=== PATIENT | female | born 1975 | race American Indian/Alaskan Native ===

== ENCOUNTER 2017-06-18 11:13 | Emergency (ER) | payer MEDICAID ==
[2017-06-18 11:30] VITALS: BP 149/87
--- NOTE | 2017-06-18 13:01 | Emergency Department Report ---
HPI - General Chief Complaint: Upper Respiratory Infection Time Seen by Provider: 06/18/17 12:47 - HPI HPI: Patient reports that she's been having body ache, sore throat, headache, nasal congestion and drainage, watery eyes. She said this started 3 days ago. She's been taking an TheraFlu, Sudafed and vitamin C and drinking water but she is not getting any better. Reports pressure behind her eyes but denies eye pain. Body aches is 8 out of 10 and achy. Denies any nausea or vomiting. Denies any abdominal pain or back pain. Denies any wheezing and stridor or shortness of breath or chest pain. Denies any urinary burning frequency or urgency. ED Past Medical Hx - Past Medical History Previous Medical History?: Yes Hx Hypertension: Yes - Surgical History Past Surgical History?: No Additional Surgical History: tubal ligation - Family History Family history: no significant - Social History Smoking Status: Never Smoker Substance Use Type: Alcohol - Medications Home Medications: Home Medications Medication Instructions Recorded Confirmed Last Taken Type Amoxicillin [Trimox CAP] 500 mg PO Q8H #30 capsule 06/10/14 Unknown Rx Ibuprofen [Motrin 800 MG tab] 800 mg PO Q8H PRN #30 tablet 06/10/14 Unknown Rx predniSONE [Deltasone] 50 mg PO QDAY #5 tab 06/10/14 Unknown Rx Cetirizine HCl [ZyrTEC] 10 mg PO QDAY #7 capsule 06/18/17 Unknown Rx Ibuprofen [Motrin] 600 mg PO Q6H PRN #20 tablet 06/18/17 Unknown Rx Oseltamivir [Tamiflu] 75 mg PO BID 5 Days #10 cap 06/18/17 Unknown Rx Promethazine /Codeine 5 ml PO Q6H PRN #100 ml 06/18/17 Unknown Rx [Phenergan/Codeine 6.25-10 mg/5 ml] ED Review of Systems ROS: Stated complaint: FLU LIKE SYMPTOMS Other details as noted in HPI Comment: All other systems reviewed and negative Constitutional: chills, fever Eyes: denies: eye discharge ENT: throat pain, congestion. denies: ear pain, dental pain, hearing loss Respiratory: cough. denies: orthopnea, shortness of breath, SOB with exertion, SOB at rest, stridor, wheezing Cardiovascular: denies: chest pain, palpitations, dyspnea on exertion, edema, syncope, paroxysmal nocturnal dyspnea Gastrointestinal: denies: abdominal pain, nausea, vomiting, diarrhea, constipation, hematemesis, melena, hematochezia Genitourinary: denies: urgency, dysuria, frequency, hematuria, discharge, abnormal menses, dyspareunia Skin: denies: rash Neurological: denies: headache Physical Exam - Physical Exam Vital Signs: Vital Signs 06/18/17 11:27 Temperature 99.1 F Pulse Rate 94 H Respiratory 20 Rate Blood Pressure 149/87 O2 Sat by Pulse 100 Oximetry General: This is a 41-year-old female well-nourished well-developed and nontoxic in appearance. Physical Exam: Head: Normocephalic, atraumatic, no abrasion, no bruising and no contusion. Eyes: Biateral pupils equal and reactive to light, bilateral EOM intact.. Bilateral conjunctival and sclera without injection, normal accommodation. No nystagmus Mouth: Moist, no pharyngeal exudate or erythema. No peritonsillar abscesses. Uvula is midline and oral airways patent. Ears: Bilateral TM congested without erythema. Bilateral EAC without any redness swelling or drainage. No mastoid bone tenderness Nose: NIKKY nasal turbinates congested with erythema and clear drainage. Maxillary and frontal sinuses non-tender to palpate. Neck: Supple, No Cervical adenopathy, full range of motion and no C-spine tenderness. No swelling or tracheal deviation normal reflexes Cardiovascular: S1, S2. Regular rate and rhythm. No murmur. Capillary refill is less then 3 seconds. Lungs: Clear to auscultate bilaterally. No rhonchi, wheezes or rales. No chest wall tenderness. No chest contusion. No bruising to chest. Dry cough Abdomen: Non-tender to palpate in all quadrants, no guarding or rebound tenderness, positive bowel sounds in all quadrants. No CVA tenderness. No hernia, bruit or mass. No rigidity or distention. Extremities: No clubbing, cyanosis or edema. +2 pulses. No neurovascular compromise Skin: Clean, dry and intact. No rash or lesions. Neurological: GCS at 15, Pt is alert and oriented 3 speech is clearod. 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 Normal gait. Negative Romberg and no pronator drift. Normal Reflexes. No motor or sensory deficit Back: No vertebral tenderness, no paraspinal tenderness. Normal inspection Psych: Normal mood and behavior ED Course Vital Signs 06/18/17 11:27 Temperature 99.1 F Pulse Rate 94 H Respiratory 20 Rate Blood Pressure 149/87 O2 Sat by Pulse 100 Oximetry - Reevaluation(s) Reevaluation #1: 06/18/17 13:31 Patient given Motrin 800 mg emergency room, influenza A&B pending. Orally hydrated. Reevaluation #2: 06/18/17 13:46 Influenza A and B- ED Medical Decision Making - Lab Data Influenza A and B- - Medical Decision Making ED course: Pt reports headache and flulike symptoms over the past 3 days and she 's been taking [id number] medication which is not helping. Patient had influenza A and B done which were negative. She was given Motrin 800 mg emergency room for body aches and orally hydrated which she tolerated well. I discussed patient her results and that she has viral syndrome which is a virus and she will need to increase her fluid intake. I discussed treatment plan and diagnosis with her and she voiced understanding. Patient to follow-up with her primary care physician and I told her she doesn't have a primary care physician she should follow up with [facility]. Patient discharged home on Phenergan with codeine for cough, Motrin for pain and fever, Tamiflu and Zyrtec. Critical care attestation.: If time is entered above; I have spent that time in minutes in the direct care of this critically ill patient, excluding procedure time. ED Disposition Clinical Impression: URI with cough and congestion, Fever and chills, Body aches, Viral syndrome Acute nonintractable headache Qualifiers: Headache type: unspecified Qualified Code(s): R51 - Headache Disposition: DC-01 TO HOME OR SELFCARE Is pt being admited?: No Does the pt Need Aspirin: No Condition: Stable Instructions: Fever in Adults (ED), Viral Syndrome (ED), Acute Cough (ED) Additional Instructions: Please increase her fluid intake to 2-3 L of fluid daily to include water, orange juice and Gatorade. Follow up with your primary care physician in 2 days and if you do not have a primary care physician follow-up at [facility] Take medication as prescribed Please do not drive or operate heavy machinery while taking in cough medicine as this medication causes drowsiness Motrin is for pain and/or fever If Symptoms worsens, return to the emergency room Prescriptions: Cetirizine HCl [ZyrTEC] 10 mg PO QDAY #7 capsule Ibuprofen [Motrin] 600 mg PO Q6H PRN #20 tablet PRN Reason: PAIN/FEVER Oseltamivir [Tamiflu] 75 mg PO BID 5 Days #10 cap Promethazine /Codeine [Phenergan/Codeine 6.25-10 mg/5 ml] 5 ml PO Q6H PRN #100 ml PRN Reason: cough Referrals: [facility] [Outside] - 06/20/17 Forms: Work/School Release Form(ED)
[2017-06-18] MEDS ORDERED: MOTRIN PO ONE (13:04)
== END 2017-06-18 14:03 | disposition home or self-care (01) ==
LOC: ED 11:13
DX: B34.9 Viral infection, unspecified (principal); J06.9 Acute upper respiratory infection, unspecified; R50.9 Fever, unspecified; M79.1 Myalgia; I10 Essential (primary) hypertension
CPT/HCPCS: 87400; 99282

== ENCOUNTER 2018-02-16 10:29 | Emergency (ER) | payer SELFPAY ==
[2018-02-16 10:52] VITALS: BP 135/82
[2018-02-16] MEDS ORDERED: ZOFRAN ODT PO ONE (12:43)
--- NOTE | 2018-02-16 12:43 | Emergency Department Report ---
Chief Complaint: Nausea/Vomiting/Diarrhea Stated Complaint: VOMIT/NAUSEA/DIARRHEA Time Seen by Provider: 02/16/18 12:33 - HPI History of Present Illness: 42-year-old female presents with a 2 day history of nausea, vomiting, diarrhea and abdominal cramping. It appears that the diarrhea is the most concerning part for her. The abdominal cramping comes just before the patient needs to have a bowel movement which she says she has done multiple times each day. She tried some Pepto-Bismol without any relief. She has a previous tubal ligation. Otherwise no significant past medical history. - ROS Review of Systems: Positive for nausea, vomiting, diarrhea and abdominal cramping Negative for chest pain, back pain, shortness of breath, fever, vaginal bleeding or discharge, dysuria - Exam Vital Signs: Vital Signs 02/16/18 10:49 Temperature 98.8 F Pulse Rate 80 Respiratory 16 Rate Blood Pressure 135/82 O2 Sat by Pulse 100 Oximetry Physical Exam: No abdominal pain to palpation. Heart and lung sounds and normal auscultation. Patient does not appear in any acute distress. MSE screening note: Focused history and physical exam performed. Due to findings the following was ordered: I have ordered a CBC, CMP and urinalysis. The patient will have a 2 view abdominal x-ray. She'll be given a Zofran ODT. ED Disposition for MSE Condition: Stable Referrals: PRIMARY CARE, [Primary Care Provider] - 3-5 Days
--- NOTE | 2018-02-16 13:17 | Emergency Department Report ---
ED N/V/D HPI - General Chief complaint: Nausea/Vomiting/Diarrhea Stated complaint: VOMIT/NAUSEA/DIARRHEA Time Seen by Provider: 02/16/18 12:33 Source: patient Mode of arrival: Ambulatory Limitations: No Limitations - History of Present Illness Initial comments: This is a 42-year-old female nontoxic, well nourished in appearance, no acute signs of distress presents to the ED with c/o of nausea and vomiting and diarrhea2 days. Patient describes vomiting as food content. Patient also stated some intermittent abdominal cramping only before and while making bowel movement. Patient denies currently any abdominal pain, pelvic pain, chest pain, short of breath, fever, chills, headache, stiff neck, numbness or tingling. Patient denies any constipation. Patient denies any recent travels. Patient denies any drug allergies significant past medical history. MD complaint: nausea, vomiting, diarrhea -: days(s) (2) Description of Vomiting: food contents Description of Diarrhea: water Associated Abdominal Pain: Yes Location: diffuse Radiation: none Pain Scale: 0 Quality: cramping Consistency: intermittent, now resolved Improves with: none Worsens with: bowel movement Associated Symptoms: nausea/vomiting. denies: myalgias, chest pain, cough, diaphoresis, fever/chills, headaches, loss of appetite, malaise, rash, dysuria, shortness of breath, syncope, weakness - Related Data Previous Rx's Medication Instructions Recorded Last Taken Type Amoxicillin [Trimox CAP] 500 mg PO Q8H #30 capsule 06/10/14 Unknown Rx Ibuprofen [Motrin 800 MG tab] 800 mg PO Q8H PRN #30 tablet 06/10/14 Unknown Rx predniSONE [Deltasone] 50 mg PO QDAY #5 tab 06/10/14 Unknown Rx Cetirizine HCl [ZyrTEC] 10 mg PO QDAY #7 capsule 06/18/17 Unknown Rx Ibuprofen [Motrin] 600 mg PO Q6H PRN #20 tablet 06/18/17 Unknown Rx Oseltamivir [Tamiflu] 75 mg PO BID 5 Days #10 cap 06/18/17 Unknown Rx Promethazine /Codeine 5 ml PO Q6H PRN #100 ml 06/18/17 Unknown Rx [Phenergan/Codeine 6.25-10 mg/5 ml] Ondansetron [Zofran Odt] 4 mg PO Q8HR PRN #20 tab.rapdis 02/16/18 Unknown Rx Allergies Allergy/AdvReac Type Severity Reaction Status Date / Time No Known Allergies Allergy Verified 06/18/17 11:27 ED Review of Systems ROS: Stated complaint: VOMIT/NAUSEA/DIARRHEA Other details as noted in HPI Constitutional: denies: chills, fever Eyes: denies: eye pain, eye discharge, vision change ENT: denies: ear pain, throat pain Respiratory: denies: cough, shortness of breath, wheezing Cardiovascular: denies: chest pain, palpitations Endocrine: no symptoms reported Gastrointestinal: abdominal pain, nausea, vomiting, diarrhea Genitourinary: denies: urgency, dysuria, discharge Musculoskeletal: denies: back pain, joint swelling, arthralgia Skin: denies: rash, lesions Neurological: denies: headache, weakness, paresthesias Psychiatric: denies: anxiety, depression Hematological/Lymphatic: denies: easy bleeding, easy bruising ED Past Medical Hx - Past Medical History Hx Hypertension: Yes - Surgical History Past Surgical History?: Yes Additional Surgical History: tubal ligation - Social History Smoking Status: Current Every Day Smoker Substance Use Type: None - Medications Home Medications: Home Medications Medication Instructions Recorded Confirmed Last Taken Type Amoxicillin [Trimox CAP] 500 mg PO Q8H #30 capsule 06/10/14 Unknown Rx Ibuprofen [Motrin 800 MG tab] 800 mg PO Q8H PRN #30 tablet 06/10/14 Unknown Rx predniSONE [Deltasone] 50 mg PO QDAY #5 tab 06/10/14 Unknown Rx Cetirizine HCl [ZyrTEC] 10 mg PO QDAY #7 capsule 06/18/17 Unknown Rx Ibuprofen [Motrin] 600 mg PO Q6H PRN #20 tablet 06/18/17 Unknown Rx Oseltamivir [Tamiflu] 75 mg PO BID 5 Days #10 cap 06/18/17 Unknown Rx Promethazine /Codeine 5 ml PO Q6H PRN #100 ml 06/18/17 Unknown Rx [Phenergan/Codeine 6.25-10 mg/5 ml] Ondansetron [Zofran Odt] 4 mg PO Q8HR PRN #20 tab.rapdis 02/16/18 Unknown Rx ED Physical Exam - General Limitations: No Limitations General appearance: alert, in no apparent distress - Head Head exam: Present: atraumatic, normocephalic - Eye Eye exam: Present: normal appearance Pupils: Present: normal accommodation - ENT ENT exam: Present: normal exam, mucous membranes moist - Neck Neck exam: Present: normal inspection, full ROM. Absent: tenderness, meningismus, lymphadenopathy - Respiratory Respiratory exam: Present: normal lung sounds bilaterally. Absent: respiratory distress, wheezes, rales, rhonchi, stridor, chest wall tenderness, accessory muscle use, decreased breath sounds, prolonged expiratory - Cardiovascular Cardiovascular Exam: Present: regular rate, normal rhythm, normal heart sounds. Absent: bradycardia, tachycardia, irregular rhythm, systolic murmur, diastolic murmur, rubs, gallop - GI/Abdominal GI/Abdominal exam: Present: soft, normal bowel sounds. Absent: distended, tenderness, guarding, rebound, rigid, diminished bowel sounds, organomegaly, mass, pulsatile mass, hernia - Rectal Rectal exam: Present: deferred - Extremities Exam Extremities exam: Present: normal inspection, full ROM, normal capillary refill. Absent: tenderness - Back Exam Back exam: Present: normal inspection, full ROM. Absent: tenderness, CVA tenderness (R), CVA tenderness (L), paraspinal tenderness, vertebral tenderness - Neurological Exam Neurological exam: Present: alert, oriented X3, normal gait - Psychiatric Psychiatric exam: Present: normal affect, normal mood - Skin Skin exam: Present: warm, dry, intact, normal color. Absent: rash ED Course Vital Signs 02/16/18 10:49 Temperature 98.8 F Pulse Rate 80 Respiratory 16 Rate Blood Pressure 135/82 O2 Sat by Pulse 100 Oximetry - Reevaluation(s) Reevaluation #1: 02/16/18 13:23 Patient is speaking full sentences with no signs of distress noted. - Consultations Consultation #1: Patient has been consulted with Dr. Pacheco about patient history, physical exam, and labs/xray results and examined and screened patient and agrees to ED plan of care and discharge plan of care. ED Medical Decision Making - Lab Data Result diagrams: 02/16/18 12:52 02/16/18 12:52 - Medical Decision Making This is a 42-year-old female that presents with nausea and vomiting and diarrhea. Patient is stable and was examined by me and Dr. Pacheco. There is no abdominal tenderness. Negative signs of symptoms of appendicitis. Labs obtained. UA obtained. KUB abdomen xray obtained and dictated by the radiologist. Patient is notified of the report with no questions noted by the patient. Vital signs are stable prior to discharge. Patient received Zofran and 1L Normal saline in the ED which patient stated symptoms has resolved and subsided. A by mouth challenge has been obtained and patient tolerated well with no nausea vomiting. Patient was notified of strict precautions of appendicitis symptoms and to return to the ED if symptoms occurs as soon as possible. Patient was also instructed to Follow-up with a primary care doctor in 3-5 days or if symptoms worsen and continue return to emergency room as soon as possible. At time of discharge, the patient does not seem toxic or ill in appearance. No acute signs of distress noted. Patient agrees to discharge treatment plan of care. No further questions noted by the patient. Critical care attestation.: If time is entered above; I have spent that time in minutes in the direct care of this critically ill patient, excluding procedure time. ED Disposition Clinical Impression: Nausea vomiting and diarrhea Disposition: DC-01 TO HOME OR SELFCARE Is pt being admited?: No Does the pt Need Aspirin: No Condition: Stable Instructions: Acute Nausea and Vomiting (ED) Additional Instructions: Follow-up with a primary care doctor in 3-5 days or if symptoms worsen and continue return to emergency room as soon as possible. Prescriptions: Ondansetron [Zofran Odt] 4 mg PO Q8HR PRN #20 tab.rapdis PRN Reason: Nausea Referrals: PRIMARY CARE, [Primary Care Provider] - 3-5 Days RAYA CANALES MD [Staff Physician] - 3-5 Days [facility] [Outside] - 3-5 Days [facility] [Outside] - 3-5 Days Forms: Work/School Release Form(ED)
[2018-02-16 13:18] LABS: Basophils % (Auto) 0.2 % (0.0-1.8); Eosinophils # (Auto) 0.3 K/mm3 (0.0-0.4); Eosinophils % (Auto) 3.4 % (0.0-4.3); Hematocrit 34.7 % (30.3-42.9); Hemoglobin 10.8 gm/dl (10.1-14.3); Lymphocytes # (Auto) 2.1 K/mm3 (1.2-5.4); Lymphocytes % (Auto) 25.1 % (13.4-35.0); Mean Corpuscular HGB Conc 31 % (30-34); Mean Corpuscular Hemoglobin 23 pg (28-32); Mean Corpuscular Volume 73 fl (79-97); Monocytes # (Auto) 0.8 K/mm3 (0.0-0.8); Monocytes % (Auto) 9.7 % (0.0-7.3); Platelet Count 293 K/mm3 (140-440); Red Blood Count 4.77 M/mm3 (3.65-5.03); Red Cell Distribution Width 19.7 % (13.2-15.2)
[2018-02-16 13:28] LABS: Alanine Aminotransferase 12 units/L (7-56); Albumin 4.1 g/dL (3.9-5); BUN/Creatinine Ratio 16; Blood Urea Nitrogen 11 mg/dL (7-17); Calcium 9.4 mg/dL (8.4-10.2); Hemolysis Index 0
--- NOTE | 2018-02-16 14:24 | XRay Report ---
FINAL REPORT EXAM: XR ABDOMEN 2V HISTORY: abd pain TECHNIQUE: 3 views of the abdomen. PRIORS: None currently available. FINDINGS: Bowel gas appearance is nonspecific and non-distended. There is no pneumoperitoneum. There is no air fluid level. There is no obstructive pattern. Mild stool is present. Residual contrast in the colon. There are no suspicious calcifications overlying the renal shadows. IMPRESSION: Nonspecific nonobstructive bowel gas pattern.
[2018-02-16 14:27] LABS: Bilirubin,Urine NEG (Negative); Blood,Urine NEG (Negative); Calcium Oxalate Crystals,Urine 1+; Color,Urine Yellow (Yellow); Mucus,Urine 3+ /HPF; Protein,Urine <15 mg/dL mg/dL (Negative); Urobilinogen,Urine < 2.0 mg/dL (<2.0)
== END 2018-02-16 15:23 | disposition home or self-care (01) ==
LOC: ED 10:29
DX: R11.2 Nausea with vomiting, unspecified (principal); R19.7 Diarrhea, unspecified; I10 Essential (primary) hypertension; F17.200 Nicotine dependence, unspecified, uncomplicated
CPT/HCPCS: 36415; 74019; 80053; 81001; 85025; Q0162

== ENCOUNTER 2018-07-08 07:01 | Emergency (ER) | payer SELFPAY ==
[2018-07-08] MEDS ORDERED: NACL 0.9% 1000 ML 1,000 ML IV ONE (07:18)
[2018-07-08 07:34] LABS: Basophils % (Auto) 0.4 % (0.0-1.8); Eosinophils # (Auto) 0.3 K/mm3 (0.0-0.4); Eosinophils % (Auto) 3.5 % (0.0-4.3); Hematocrit 34.8 % (30.3-42.9); Lymphocytes # (Auto) 1.5 K/mm3 (1.2-5.4); Lymphocytes % (Auto) 18.7 % (13.4-35.0); Mean Corpuscular HGB Conc 32 % (30-34); Mean Corpuscular Volume 75 fl (79-97); Monocytes # (Auto) 0.9 K/mm3 (0.0-0.8); Monocytes % (Auto) 10.4 % (0.0-7.3); Platelet Count 317 K/mm3 (140-440); Red Blood Count 4.67 M/mm3 (3.65-5.03)
[2018-07-08 07:57] LABS: Alanine Aminotransferase 10 units/L (7-56); BUN/Creatinine Ratio 17; Blood Urea Nitrogen 12 mg/dL (7-17); Calcium 8.9 mg/dL (8.4-10.2); Hemolysis Index 0
[2018-07-08 08:02] LABS: Bilirubin,Urine NEG (Negative); Blood,Urine NEG (Negative); Color,Urine Yellow (Yellow); Hyaline Casts,Urine 1 /LPF; Mucus,Urine 3+ /HPF; Urobilinogen,Urine < 2.0 mg/dL (<2.0)
[2018-07-08 08:09] LABS: Red Cell Distribution Width 20.4 % (13.2-15.2)
--- NOTE | 2018-07-08 09:47 | Cat Scan Report ---
CT ABDOMEN PELVIS WITH CONTRAST: HISTORY: Abdominal pain with GI bleed. COMPARISON: none. TECHNIQUE: Helical CT in 1.25mm intervals following IV contrast. Sagittal and coronal reconstructions. FINDINGS: Lung bases: Normal. Liver: Normal. Biliary system: Normal. Pancreas: Normal. Spleen: Normal. Kidneys/ureters/bladder: Normal. Adrenal glands: Normal. Aorta: Normal. Intestines: Within normal limits given no oral contrast was administered. Appendix: Normal. Pelvic viscera: A 2.3 cm slightly hyperdense masslike lesion is identified within the endometrial canal near the uterine fundus. The etiology of this is unclear. This could represent a polyp or possibly thrombus. The remainder of the uterus is unremarkable. The adnexa are unremarkable. Ascites: None. Adenopathy: None. Musculoskeletal: Normal. IMPRESSION: Slightly abnormal endometrium as described above. No acute inflammatory process is identified. No obvious site of GI bleeding.
--- NOTE | 2018-07-08 10:06 | Emergency Department Report ---
ED Abdominal Pain HPI - General Chief Complaint: GI Bleed Stated Complaint: BLOODY STOOL ABD PAIN Time Seen by Provider: 07/08/18 08:18 Source: patient Mode of arrival: Ambulatory Limitations: No Limitations - History of Present Illness Initial Comments: Patient is a 42-year-old Female who is presenting with some lower abdominal crampiness. Patient states for the past 4 days after she eats she feels some abdominal cramps. Patient also has blood in her stool. Patient states some bright red blood surrounding form stool. Patient states crampiness does resolve after bowel movements. Patient after eating doses of urgency to have a bowel movement. Patient denies any diarrhea fevers chills nausea vomiting, cold or congestion at this time. Severity scale (0 -10): 6 - Related Data Previous Rx's Medication Instructions Recorded Last Taken Type Amoxicillin [Trimox CAP] 500 mg PO Q8H #30 capsule 06/10/14 Unknown Rx Ibuprofen [Motrin 800 MG tab] 800 mg PO Q8H PRN #30 tablet 06/10/14 Unknown Rx predniSONE [Deltasone] 50 mg PO QDAY #5 tab 06/10/14 Unknown Rx Cetirizine HCl [ZyrTEC] 10 mg PO QDAY #7 capsule 06/18/17 Unknown Rx Ibuprofen [Motrin] 600 mg PO Q6H PRN #20 tablet 06/18/17 Unknown Rx Oseltamivir [Tamiflu] 75 mg PO BID 5 Days #10 cap 06/18/17 Unknown Rx Promethazine /Codeine 5 ml PO Q6H PRN #100 ml 06/18/17 Unknown Rx [Phenergan/Codeine 6.25-10 mg/5 ml] Ondansetron [Zofran Odt] 4 mg PO Q8HR PRN #20 tab.rapdis 02/16/18 Unknown Rx Hydrocortisone [Anusol-Hc] 30 gm RC DAILY 7 Days cream..g. 07/08/18 Unknown Rx traMADol [Ultram] 50 mg PO Q6HR PRN #12 tablet 07/08/18 Unknown Rx Allergies Allergy/AdvReac Type Severity Reaction Status Date / Time No Known Allergies Allergy Verified 06/18/17 11:27 ED Review of Systems ROS: Stated complaint: BLOODY STOOL ABD PAIN Other details as noted in HPI Comment: Unobtainable due to pts medical conditions Constitutional: denies: chills, fever Eyes: denies: eye pain, eye discharge, vision change ENT: denies: ear pain, throat pain Respiratory: denies: cough, shortness of breath, wheezing Cardiovascular: denies: chest pain, palpitations Endocrine: no symptoms reported Gastrointestinal: hematochezia. denies: abdominal pain, nausea, diarrhea Genitourinary: denies: urgency, dysuria, discharge Musculoskeletal: denies: back pain, joint swelling, arthralgia Skin: denies: rash, lesions Neurological: denies: headache, weakness, paresthesias Psychiatric: denies: anxiety, depression Hematological/Lymphatic: denies: easy bleeding, easy bruising ED Past Medical Hx - Past Medical History Previous Medical History?: Yes Hx Hypertension: Yes Additional medical history: IBS - Surgical History Past Surgical History?: Yes Additional Surgical History: tubal ligation - Social History Smoking Status: Never Smoker Substance Use Type: Alcohol - Medications Home Medications: Home Medications Medication Instructions Recorded Confirmed Last Taken Type Amoxicillin [Trimox CAP] 500 mg PO Q8H #30 capsule 06/10/14 Unknown Rx Ibuprofen [Motrin 800 MG tab] 800 mg PO Q8H PRN #30 tablet 06/10/14 Unknown Rx predniSONE [Deltasone] 50 mg PO QDAY #5 tab 06/10/14 Unknown Rx Cetirizine HCl [ZyrTEC] 10 mg PO QDAY #7 capsule 06/18/17 Unknown Rx Ibuprofen [Motrin] 600 mg PO Q6H PRN #20 tablet 06/18/17 Unknown Rx Oseltamivir [Tamiflu] 75 mg PO BID 5 Days #10 cap 06/18/17 Unknown Rx Promethazine /Codeine 5 ml PO Q6H PRN #100 ml 06/18/17 Unknown Rx [Phenergan/Codeine 6.25-10 mg/5 ml] Ondansetron [Zofran Odt] 4 mg PO Q8HR PRN #20 tab.rapdis 02/16/18 Unknown Rx Hydrocortisone [Anusol-Hc] 30 gm RC DAILY 7 Days cream..g. 07/08/18 Unknown Rx traMADol [Ultram] 50 mg PO Q6HR PRN #12 tablet 07/08/18 Unknown Rx ED Physical Exam - General Limitations: No Limitations General appearance: alert, in no apparent distress - Head Head exam: Present: atraumatic, normocephalic - Eye Eye exam: Present: normal appearance - ENT ENT exam: Present: mucous membranes moist - Neck Neck exam: Present: normal inspection - Respiratory Respiratory exam: Present: normal lung sounds bilaterally. Absent: respiratory distress, wheezes, rales, rhonchi - Cardiovascular Cardiovascular Exam: Present: regular rate, normal rhythm. Absent: systolic m urmur, diastolic murmur, rubs, gallop - GI/Abdominal GI/Abdominal exam: Present: soft, normal bowel sounds. Absent: distended, tenderness, guarding, rebound, rigid - Rectal Rectal exam: Present: normal inspection - Extremities Exam Extremities exam: Present: normal inspection - Back Exam Back exam: Present: normal inspection - Neurological Exam Neurological exam: Present: alert, oriented X3 - Psychiatric Psychiatric exam: Present: normal affect, normal mood - Skin Skin exam: Present: warm, dry, intact, normal color. Absent: rash ED Course Vital Signs 07/08/18 07/08/18 07:11 08:44 Temperature 98.0 F Pulse Rate 80 Respiratory 16 18 Rate Blood Pressure 113/82 O2 Sat by Pulse 99 99 Oximetry ED Medical Decision Making - Lab Data Result diagrams: 07/08/18 07:21 07/08/18 07:21 Lab Results 07/08/18 07/08/18 07/08/18 Range/Units 07:21 07:21 07:34 WBC 8.2 (4.5-11.0) K/mm3 RBC 4.67 (3.65-5.03) M/mm3 Hgb 11.0 (10.1-14.3) gm/dl Hct 34.8 (30.3-42.9) % MCV 75 L (79-97) fl MCH 24 L (28-32) pg MCHC 32 (30-34) % RDW 20.4 H (13.2-15.2) % Plt Count 317 (140-440) K/mm3 Lymph % (Auto) 18.7 (13.4-35.0) % Green % (Auto) 10.4 H (0.0-7.3) % Eos % (Auto) 3.5 (0.0-4.3) % Baso % (Auto) 0.4 (0.0-1.8) % Lymph # 1.5 (1.2-5.4) K/mm3 Green # 0.9 H (0.0-0.8) K/mm3 Eos # 0.3 (0.0-0.4) K/mm3 Baso # 0.0 (0.0-0.1) K/mm3 Seg Neutrophils % 67.0 (40.0-70.0) % Seg Neutrophils # 5.5 (1.8-7.7) K/mm3 Sodium 138 (137-145) mmol/L Potassium 3.8 (3.6-5.0) mmol/L Chloride 101.0 (98-107) mmol/L Carbon Dioxide 24 (22-30) mmol/L Anion Gap 17 mmol/L BUN 12 (7-17) mg/dL Creatinine 0.7 (0.7-1.2) mg/dL Estimated GFR > 60 ml/min BUN/Creatinine Ratio 17 % Glucose 100 (65-100) mg/dL Calcium 8.9 (8.4-10.2) mg/dL Total Bilirubin 0.30 (0.1-1.2) mg/dL AST 15 (5-40) units/L ALT 10 (7-56) units/L Alkaline Phosphatase 122 (35-129) units/L Total Protein 7.4 (6.3-8.2) g/dL Albumin 4.0 (3.9-5) g/dL Albumin/Globulin Ratio 1.2 % Lipase 15 (13-60) units/L Urine Color Yellow (Yellow) Urine Turbidity Slightly-cloudy (Clear) Urine pH 6.0 (5.0-7.0) Ur Specific [place] 1.016 (1.003-1.030) Urine Protein 30 mg/dl (Negative) mg/dL Urine Glucose (UA) Neg (Negative) mg/dL Urine Ketones Neg (Negative) mg/dL Urine Blood Neg (Negative) Urine Nitrite Neg (Negative) Urine Bilirubin Neg (Negative) Urine Urobilinogen < 2.0 (<2.0) mg/dL Ur Leukocyte Esterase Neg (Negative) Urine WBC (Auto) 3.0 (0.0-6.0) /HPF Urine RBC (Auto) 2.0 (0.0-6.0) /HPF U Epithel Cells (Auto) 11.0 (0-13.0) /HPF Hyaline Casts 1 /LPF Urine Mucus 3+ /HPF - Radiology Data [address] [place] [address] Cat Scan Report Signed Patient: DANITA ARAUJO MR#: [id number] : 1975 Acct:[id number] Age/Sex: 42 / F ADM Date: 07/08/18 Loc: ED Attending Dr: Ordering Physician: ANU SINGH MD Date of Service: 07/08/18 Procedure(s): CT abdomen pelvis w con Accession Number(s): [id number] cc: ANU SINGH MD CT ABDOMEN PELVIS WITH CONTRAST: HISTORY: Abdominal pain with GI bleed. COMPARISON: none. TECHNIQUE: Helical CT in 1.25mm intervals following IV contrast. Sagittal and coronal reconstructions. FINDINGS: Lung bases: Normal. Liver: Normal. Biliary system: Normal. Pancreas: Normal. Spleen: Normal. Kidneys/ureters/bladder: Normal. Adrenal glands: Normal. Aorta: Normal. Intestines: Within normal limits given no oral contrast was administered. Appendix: Normal. Pelvic viscera: A 2.3 cm slightly hyperdense masslike lesion is identified within the endometrial canal near the uterine fundus. The etiology of this is unclear. This could represent a polyp or possibly thrombus. The remainder of the uterus is unremarkable. The adnexa are unremarkable. Ascites: None. Adenopathy: None. Musculoskeletal: Normal. IMPRESSION: Slightly abnormal endometrium as described above. No acute inflammatory process is identified. No obvious site of GI bleeding. Transcribed By: TTR Dictated By: ADIEL FINK JR, MD Electronically Authenticated By: ADIEL FINK JR, MD Signed Date/Time: 07/08/18942 DD/ 9 - Medical Decision Making No obvious hemorrhoids were seen during the rectal exam. Patient will be refe rred to GI. Patient's hemoglobin was within normal limits. Patient given Anusol and case this is an internal hemorrhoid also has been urged to continue with her Bentyl was prescribed outside physician. Critical care attestation.: If time is entered above; I have spent that time in minutes in the direct care of this critically ill patient, excluding procedure time. ED Disposition Clinical Impression: GI bleeding Qualifiers: GI bleed type/associated pathology: unspecified gastrointestinal hemorrhage t ype Qualified Code(s): K92.2 - Gastrointestinal hemorrhage, unspecified Disposition: DC-01 TO HOME OR SELFCARE Is pt being admited?: No Does the pt Need Aspirin: No Condition: Stable Instructions: Rectal Bleeding (ED) Referrals: ASIM RIVERA MD [Staff Physician] - 3-5 Days Time of Disposition: 10:04
[2018-07-08 10:29] VITALS: BP 127/80
== END 2018-07-08 10:23 | disposition home or self-care (01) ==
LOC: ED 07:01
DX: K92.2 Gastrointestinal hemorrhage, unspecified (principal); I10 Essential (primary) hypertension; K58.9 Irritable bowel syndrome, unspecified; Z98.51 Tubal ligation status; Z79.899 Other long term (current) drug therapy
CPT/HCPCS: 36415; 74177; 80053; 81001; 83690; 85025; 99284; J7030; Q9967

== ENCOUNTER 2018-10-12 10:45 | Emergency (ER) | payer SELFPAY ==
[2018-10-12 10:59] VITALS: BP 144/85
--- NOTE | 2018-10-12 12:10 | XRay Report ---
PROCEDURE: XR CHEST ROUTINE 2V TECHNIQUE: PA and lateral chest radiographs were obtained. HISTORY: knot on the chest wall COMPARISONS: None currently available. FINDINGS: Cardiac silhouette is within normal limits. There is no effusion. There is no pneumothorax. There is no consolidation. There are no suspicious osseous lesions. IMPRESSION: * No acute cardiopulmonary findings. This document is electronically signed by Babatunde Gregory MD., Oct 12 2018 12:08:07 PM ET
[2018-10-12] MEDS ORDERED: TYLENOL PO ONE (12:34)
[2018-10-12] MEDS ORDERED: TORADOL IM ONE (12:34)
--- NOTE | 2018-10-12 13:16 | Emergency Department Report ---
ED General Adult HPI - General Chief complaint: Chest Pain Stated complaint: CHEST PAIN Time Seen by Provider: 10/12/18 12:27 Source: patient Mode of arrival: Ambulatory Limitations: No Limitations - History of Present Illness Initial comments: She is a 42-year-old femalewith an past medical history who presents with chest wall pain. 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 The chest wall pain as a 6 out of 10 as an aching type of pain. Moving makes it worse putting pressure on it makes it better. Patient doesn't have any nausea doesn't have any vomiting. Severity scale (0 -10): 6 - Related Data Previous Rx's Medication Instructions Recorded Last Taken Type Amoxicillin [Trimox CAP] 500 mg PO Q8H #30 capsule 06/10/14 Unknown Rx Ibuprofen [Motrin 800 MG tab] 800 mg PO Q8H PRN #30 tablet 06/10/14 Unknown Rx predniSONE [Deltasone] 50 mg PO QDAY #5 tab 06/10/14 Unknown Rx Cetirizine HCl [ZyrTEC] 10 mg PO QDAY #7 capsule 06/18/17 Unknown Rx Ibuprofen [Motrin] 600 mg PO Q6H PRN #20 tablet 06/18/17 Unknown Rx Oseltamivir [Tamiflu] 75 mg PO BID 5 Days #10 cap 06/18/17 Unknown Rx Promethazine /Codeine 5 ml PO Q6H PRN #100 ml 06/18/17 Unknown Rx [Phenergan/Codeine 6.25-10 mg/5 ml] Ondansetron [Zofran Odt] 4 mg PO Q8HR PRN #20 tab.rapdis 02/16/18 Unknown Rx Hydrocortisone [Anusol-Hc] 30 gm RC DAILY 7 Days cream..g. 07/08/18 Unknown Rx traMADol [Ultram] 50 mg PO Q6HR PRN #12 tablet 07/08/18 Unknown Rx Menthol/Aloe Vera Extract [Icy Hot 49 gm TP Q6H #1 gel..gram. 10/12/18 Unknown Rx 16% Power Gel] traMADol [Ultram 50 MG tab] 50 mg PO Q6HR PRN #7 tablet 10/12/18 Unknown Rx Allergies Allergy/AdvReac Type Severity Reaction Status Date / Time No Known Allergies Allergy Verified 10/12/18 10:48 ED Review of Systems ROS: Stated complaint: CHEST PAIN Other details as noted in HPI Constitutional: denies: chills, fever Eyes: denies: eye pain, eye discharge, vision change ENT: denies: ear pain, throat pain Respiratory: denies: cough, shortness of breath, wheezing Cardiovascular: chest pain. denies: palpitations Endocrine: no symptoms reported Gastrointestinal: denies: abdominal pain, nausea, diarrhea Genitourinary: denies: urgency, dysuria, discharge Musculoskeletal: denies: back pain, joint swelling, arthralgia Skin: denies: rash, lesions Neurological: denies: headache, weakness, paresthesias Psychiatric: denies: anxiety, depression Hematological/Lymphatic: denies: easy bleeding, easy bruising ED Past Medical Hx - Past Medical History Hx Hypertension: Yes Additional medical history: IBS - Surgical History Additional Surgical History: tubal ligation - Social History Smoking Status: Never Smoker Substance Use Type: Marijuana - Medications Home Medications: Home Medications Medication Instructions Recorded Confirmed Last Taken Type Amoxicillin [Trimox CAP] 500 mg PO Q8H #30 capsule 06/10/14 Unknown Rx Ibuprofen [Motrin 800 MG tab] 800 mg PO Q8H PRN #30 tablet 06/10/14 Unknown Rx predniSONE [Deltasone] 50 mg PO QDAY #5 tab 06/10/14 Unknown Rx Cetirizine HCl [ZyrTEC] 10 mg PO QDAY #7 capsule 06/18/17 Unknown Rx Ibuprofen [Motrin] 600 mg PO Q6H PRN #20 tablet 06/18/17 Unknown Rx Oseltamivir [Tamiflu] 75 mg PO BID 5 Days #10 cap 06/18/17 Unknown Rx Promethazine /Codeine 5 ml PO Q6H PRN #100 ml 06/18/17 Unknown Rx [Phenergan/Codeine 6.25-10 mg/5 ml] Ondansetron [Zofran Odt] 4 mg PO Q8HR PRN #20 tab.rapdis 02/16/18 Unknown Rx Hydrocortisone [Anusol-Hc] 30 gm RC DAILY 7 Days cream..g. 07/08/18 Unknown Rx traMADol [Ultram] 50 mg PO Q6HR PRN #12 tablet 07/08/18 Unknown Rx Menthol/Aloe Vera Extract [Icy Hot 49 gm TP Q6H #1 gel..gram. 05/19/19 Unknown Rx 16% Power Gel] traMADol [Ultram 50 MG tab] 50 mg PO Q6HR PRN #7 tablet 10/12/18 Unknown Rx ED Physical Exam - General Limitations: No Limitations General appearance: alert, in no apparent distress - Head Head exam: Present: atraumatic, normocephalic - Eye Eye exam: Present: normal appearance - ENT ENT exam: Present: mucous membranes moist - Neck Neck exam: Present: normal inspection - Respiratory Respiratory exam: Present: normal lung sounds bilaterally. Absent: respiratory distress - Cardiovascular Cardiovascular Exam: Present: regular rate, normal rhythm, other (chest wall tenderness ). Absent: systolic murmur, diastolic murmur, rubs, gallop - GI/Abdominal GI/Abdominal exam: Present: soft, normal bowel sounds - Extremities Exam Extremities exam: Present: normal inspection - Back Exam Back exam: Present: normal inspection - Neurological Exam Neurological exam: Present: alert, oriented X3 - Psychiatric Psychiatric exam: Present: normal affect, normal mood - Skin Skin exam: Present: warm, dry, intact, normal color. Absent: rash ED Course Vital Signs 10/12/18 10/12/18 10:57 12:42 Temperature 98.9 F Pulse Rate 86 Respiratory 16 18 Rate Blood Pressure 144/85 [Right] O2 Sat by Pulse 100 Oximetry ED Medical Decision Making - EKG Data -: EKG Interpreted by Me - EKG Data 10/12/18 13:16 KG shows normal sinus rhythm no ST segment elevation noted T-wave inversion normal axis. - Radiology Data Radiology results: report reviewed, image reviewed Chest x-ray: Shows no acute cardiopulmonary disease - Medical Decision Making Chief medical diagnosis: Costochondritis Differential diagnosis: Pulled chest wall muscle, bruised rib I will get EKG chest x-ray and IM pain medicine Discussed plan with patient. Patient agrees with plan additional verbal discharge instructions were given. Critical care attestation.: If time is entered above; I have spent that time in minutes in the direct care o f this critically ill patient, excluding procedure time. ED Disposition Clinical Impression: Chest wall pain Disposition: DC-01 TO HOME OR SELFCARE Is pt being admited?: No Does the pt Need Aspirin: No Condition: Stable Instructions: Costochondritis (ED) Prescriptions: Menthol/Aloe Vera Extract [Icy Hot 16% Power Gel] 49 gm TP Q6H #1 gel..gram. traMADol [Ultram 50 MG tab] 50 mg PO Q6HR PRN #7 tablet PRN Reason: Pain Referrals: KEVEN BECERRA MD [Primary Care Provider] - 3-5 Days
== END 2018-10-12 13:58 | disposition home or self-care (01) ==
LOC: ED 10:45
DX: R07.89 Other chest pain (principal); F12.10 Cannabis abuse, uncomplicated; I10 Essential (primary) hypertension; Z98.51 Tubal ligation status
CPT/HCPCS: 71046; 93005; 93010; 96372; 99283; J1885

== ENCOUNTER 2019-05-08 19:01 | Emergency (ER) | payer SELFPAY ==
--- NOTE | 2019-05-08 20:15 | Event Note ---
ED Screening Note Date of service: 05/08/19 Time: 20:12 ED Screening Note: This is a 43 y.o. F. that presents to the ER with headache and blurry vision on right eye. Reports blurry vision for 1 week with pain in right eye. PMH of HTN This initial assessment/diagnostic orders/clinical plan/treatment(s) is/are subject to change based on patients health status, clinical progression and re- assessment by fellow clinical providers in the ED. Further treatment and workup at subsequent clinical providers discretion. Patient/guardian urged not to elope from the ED as their condition may be serious if not clinically assessed and managed. Initial orders include:
[2019-05-08] MEDS ORDERED: BUTALB/ACETAMINOPHEN/CAFFEINE TAB PO ONE (22:46)
[2019-05-08] MEDS ORDERED: IBUPROFEN 600 MG TAB PO ONE (22:46)
--- NOTE | 2019-05-08 23:27 | Cat Scan Report ---
Head CT without intravenous contrast INDICATION: Headache and blurred vision COMPARISON: None FINDINGS: The ventricles are normal in size and position. No hemorrhage or extra-axial fluid collecti on. No edema or mass effect. No focal infarct seen. Portions of the sinuses visualized are clear. No skull fracture identified. IMPRESSION: Negative head CT Automated exposure control was utilized to diminish radiation dose Signer Name: Neftaly Poon MD Signed: 05/08/2019 11:22 PM Workstation Name: [id number]
--- NOTE | 2019-05-08 23:38 | Emergency Department Report ---
ED Headache HPI - General Chief Complaint: Headache Stated Complaint: BLURR VISION/HEADACHE Time Seen by Provider: 05/08/19 20:11 Source: patient Exam Limitations: no limitations - History of Present Illness Initial Comments: Patient is a 43-year-old [place] female with a history of hypertension who presents to the ED with acute onset persistent bitemporal headache that radiates to the right retro-orbital area with bloody vision on the right eye the last 1 week. Patient denies nausea, vomiting, chest pain, dizziness, shortness of breath, fever, chills, cough, nasal and sinus congestion, vision loss, neck pain, sore throat, or syncope. Timing/Duration: 1 week Quality: sharp, throbbing Head Injury Location: temporal (right), other (right retro-orbital) Recent Head Trauma: no recent headache/trauma Modifying Factors: improves with: other (None) Associated Symptoms: denies symptoms. denies: confusion, fatigue, facial pain, fever/chills, flushing, loss of consciousness, nausea/vomiting, nasal congestion, nasal drainage, numbness in legs/feet, rash, seizures, sinus infection, stiff neck, vision changes, weakness Allergies/Adverse Reactions: Allergies No Known Allergies Allergy (Verified 10/12/18 10:48) Home Medications: Ambulatory Orders Amoxicillin [Trimox CAP] 500 mg PO Q8H #30 capsule 06/10/14 Ibuprofen [Motrin 800 MG tab] 800 mg PO Q8H PRN #30 tablet 06/10/14 predniSONE [Deltasone] 50 mg PO QDAY #5 tab 06/10/14 Cetirizine HCl [ZyrTEC] 10 mg PO QDAY #7 capsule 06/18/17 Ibuprofen [Motrin] 600 mg PO Q6H PRN #20 tablet 06/18/17 Oseltamivir [Tamiflu] 75 mg PO BID 5 Days #10 cap 06/18/17 Promethazine /Codeine [Phenergan/Codeine 6.25-10 mg/5 ml] 5 ml PO Q6H PRN #100 ml 06/18/17 Ondansetron [Zofran Odt] 4 mg PO Q8HR PRN #20 tab.rapdis 02/16/18 Hydrocortisone [Anusol-Hc] 30 gm RC DAILY 7 Days cream..g. 07/08/18 traMADoL [Ultram] 50 mg PO Q6HR PRN #12 tablet 07/08/18 Menthol/Aloe Vera Extract [Icy Hot 16% Power Gel] 49 gm TP Q6H #1 gel..gram. 10/12/18 traMADoL [Ultram 50 MG tab] 50 mg PO Q6HR PRN #7 tablet 10/12/18 Butalb/Acetamin/Caff 50-325-40 [Fioricet 50-325-40] 1 - 2 tab PO Q6HR PRN #12 tab 05/08/19 Ibuprofen [Motrin] 600 mg PO Q8H PRN #24 tablet 05/08/19 Promethazine [Phenergan] 25 mg PO Q6HR PRN #20 tab 05/08/19 ED Review of Systems ROS: Stated complaint: BLURR VISION/HEADACHE Other details as noted in HPI Constitutional: denies: chills, fever Eyes: denies: eye pain, eye discharge, vision change ENT: denies: ear pain, throat pain Respiratory: denies: cough, shortness of breath, wheezing Cardiovascular: denies: chest pain, palpitations Endocrine: no symptoms reported Gastrointestinal: denies: abdominal pain, nausea, vomiting, diarrhea Genitourinary: denies: urgency, dysuria, discharge Musculoskeletal: denies: back pain, joint swelling, arthralgia Skin: denies: rash, lesions Neurological: headache. denies: weakness, paresthesias Psychiatric: denies: anxiety, depression Hematological/Lymphatic: denies: easy bleeding, easy bruising ED Past Medical Hx - Past Medical History Previous Medical History?: Yes Hx Hypertension: Yes Additional medical history: IBS - Surgical History Past Surgical History?: Yes Additional Surgical History: tubal ligation - Social History Smoking Status: Current Every Day Smoker Substance Use Type: Marijuana - Medications Home Medications: Home Medications Medication Instructions Recorded Confirmed Last Taken Type Amoxicillin [Trimox CAP] 500 mg PO Q8H #30 capsule 06/10/14 Unknown Rx Ibuprofen [Motrin 800 MG tab] 800 mg PO Q8H PRN #30 tablet 06/10/14 Unknown Rx predniSONE [Deltasone] 50 mg PO QDAY #5 tab 06/10/14 Unknown Rx Cetirizine HCl [ZyrTEC] 10 mg PO QDAY #7 capsule 06/18/17 Unknown Rx Ibuprofen [Motrin] 600 mg PO Q6H PRN #20 tablet 06/18/17 Unknown Rx Oseltamivir [Tamiflu] 75 mg PO BID 5 Days #10 cap 06/18/17 Unknown Rx Promethazine /Codeine 5 ml PO Q6H PRN #100 ml 06/18/17 Unknown Rx [Phenergan/Codeine 6.25-10 mg/5 ml] Ondansetron [Zofran Odt] 4 mg PO Q8HR PRN #20 tab.rapdis 02/16/18 Unknown Rx Hydrocortisone [Anusol-Hc] 30 gm RC DAILY 7 Days cream..g. 07/08/18 Unknown Rx traMADoL [Ultram] 50 mg PO Q6HR PRN #12 tablet 07/08/18 Unknown Rx Menthol/Aloe Vera Extract [Icy Hot 49 gm TP Q6H #1 gel..gram. 10/12/18 Unknown Rx 16% Power Gel] traMADoL [Ultram 50 MG tab] 50 mg PO Q6HR PRN #7 tablet 10/12/18 Unknown Rx Butalb/Acetamin/Caff 50-325-40 1 - 2 tab PO Q6HR PRN #12 tab 05/08/19 Unknown Rx [Fioricet 50-325-40] Ibuprofen [Motrin] 600 mg PO Q8H PRN #24 tablet 05/08/19 Unknown Rx Promethazine [Phenergan] 25 mg PO Q6HR PRN #20 tab 05/08/19 Unknown Rx ED Physical Exam - General Limitations: No Limitations General appearance: alert, in no apparent distress - Head Head exam: Present: atraumatic, normocephalic, normal inspection - Eye Eye exam: Present: normal appearance, PERRL, EOMI Pupils: Present: normal accommodation - ENT ENT exam: Present: normal exam, normal orophraynx, mucous membranes moist, TM's normal bilaterally, normal external ear exam - Neck Neck exam: Present: normal inspection, full ROM - Respiratory Respiratory exam: Present: normal lung sounds bilaterally. Absent: respiratory distress, wheezes, rhonchi, chest wall tenderness, accessory muscle use, prolonged expiratory - Cardiovascular Cardiovascular Exam: Present: normal rhythm, tachycardia, normal heart sounds. Absent: systolic murmur, diastolic murmur, rubs, gallop - GI/Abdominal GI/Abdominal exam: Present: soft, normal bowel sounds. Absent: tenderness, guarding, hyperactive bowel sounds, hypoactive bowel sounds, organomegaly - Extremities Exam Extremities exam: Present: normal inspection, full ROM, normal capillary refill - Back Exam Back exam: Present: normal inspection, full ROM. Absent: tenderness, muscle spasm, paraspinal tenderness - Neurological Exam Neurological exam: Present: alert, oriented X3, CN II-XII intact, normal gait, reflexes normal - Psychiatric Psychiatric exam: Present: normal affect, normal mood, anxious - Skin Skin exam: Present: warm, dry, intact, normal color. Absent: rash ED Course Vital Signs 05/08/19 05/09/19 19:46 00:16 Temperature 99.0 F Pulse Rate 107 H 82 Respiratory 14 18 Rate Blood Pressure 132/78 Blood Pressure 103/69 [Left] O2 Sat by Pulse 99 99 Oximetry ED Medical Decision Making - Radiology Data Radiology results: report reviewed, image reviewed Head CT scan without contrast shows no acute intracranial abnormalities or hemorrhage. - Medical Decision Making This is a 43-year-old female who presented to the ED with persistent right temporal and retro-orbital headache with blurry vision for the last 1 week. In the ED, patient is alert and oriented 3 and is not in distress but anxious. Patient is however tachycardic in triage. Patient was treated with pain in the ED and head CT scan without contrast shows no acute intracranial abnormalities or hemorrhage. Patient was discharged home on pain medications and advised to follow-up with her primary care physician in 5-7 days for reevaluation or return to the ED immediately if symptoms get worse. - Differential Diagnosis Migraine headache; Tension headache; Cluster headache Critical care attestation.: If time is entered above; I have spent that time in minutes in the direct care of this critically ill patient, excluding procedure time. ED Disposition Clinical Impression: Anxiety as acute reaction to exceptional stress Migraine headache without aura Qualifiers: Status migrainosus presence: without status migrainosus Intractability: not intractable Qualified Code(s): G43.009 - Migraine without aura, not intractable, without status migrainosus Disposition: DC-01 TO HOME OR SELFCARE Is pt being admited?: No Does the pt Need Aspirin: No Condition: Stable Instructions: Cluster Headache (ED), Migraine Headache (ED) Additional Instructions: Take medications with food, drink plenty of fluids and follow-up with her primary care physician in 5-7 days for reevaluation. Return to the ED immediately if symptoms get worse. Prescriptions: Butalb/Acetamin/Caff 50-325-40 [Fioricet 50-325-40] 1 - 2 tab PO Q6HR PRN #12 tab PRN Reason: Headache Ibuprofen [Motrin] 600 mg PO Q8H PRN #24 tablet PRN Reason: Pain Promethazine [Phenergan] 25 mg PO Q6HR PRN #20 tab PRN Reason: Nausea Referrals: JOHNATHAN ROWE MD [Staff Physician] - 7-10 days Time of Disposition: 23:39 Print Language: NEPALESE
[2019-05-09 00:17] VITALS: BP 103/69
== END 2019-05-09 00:18 | disposition home or self-care (01) ==
LOC: ED 19:01
DX: G43.009 Migraine without aura, not intractable, without status migrainosus (principal); F41.9 Anxiety disorder, unspecified; I10 Essential (primary) hypertension; F17.200 Nicotine dependence, unspecified, uncomplicated; F12.10 Cannabis abuse, uncomplicated; Z98.51 Tubal ligation status; Z79.899 Other long term (current) drug therapy
CPT/HCPCS: 70450